=== PATIENT | male | born 1960 | race Caucasian/White ===

== ENCOUNTER 2018-03-04 23:09 | Emergency (ER) | payer BC, OTHER ==
--- NOTE | 2018-03-05 00:22 | EDPHY ---
H & P Stated Complaint: ETOH, nausea Time Seen by Provider: 03/05/18 00:06 HPI/ROS: HPI The patient presents with alcohol and marijuana intoxication, brought in by paramedics. Patient drink several alcoholic drinks today and then took a smoker of marijuana. He immediately felt dizzy and generally unwell, has if he could not control his body. His symptoms were constant. He is brought in by EMS to administered 1 L of normal saline via IV and now he is feeling much better. He is able to walk around the emergency department with no complaint. He feels mildly nauseated.. REVIEW OF SYSTEMS Constitutional: No fever, no chills. Eyes: No discharge. ENT: No sore throat. Cardiovascular: No chest pain, no palpitations. Respiratory: No cough, no shortness of breath. Gastrointestinal: No abdominal pain, no vomiting. Genitourinary: No hematuria. Musculoskeletal: No back pain. Skin: No rashes. Neurological: No headache. PMHx: Healthy Soc Hx: Alcohol use tonight PHYSICAL General Appearance: Alert, no distress Eyes: Pupils equal and round no pallor or injection ENT, Mouth: Mucous membranes moist Respiratory: There are no retractions, lungs are clear to auscultation Cardiovascular: Regular rate and rhythm Gastrointestinal: Abdomen is soft and non-tender, no masses, bowel sounds normal Neurological: A&O, moves all extremities Skin: Warm and dry, no rashes Musculoskeletal: Neck is supple non tender Extremities: symmetrical, full range of motion Psychiatric: Patient is oriented X 3, there is no agitation Source: Patient, RN/MD, EMS Exam Limitations: No limitations - Personal History Current Tetanus/Diphtheria Vaccine: Unsure - Medical/Surgical History Hx Asthma: No Hx Chronic Respiratory Disease: No Hx Diabetes: No Hx Cardiac Disease: No Hx Renal Disease: No Hx Cirrhosis: No Hx Alcoholism: No Hx HIV/AIDS: No Hx Splenectomy or Spleen Trauma: No Other PMH: denies - Social History Smoking Status: Never smoked Constitutional: Initial Vital Signs Temperature (C) 36.3 C 03/04/18 23:10 Heart Rate 81 03/04/18 23:10 Respiratory Rate 16 03/04/18 23:10 Blood Pressure 133/89 H 03/04/18 23:10 O2 Sat (%) 98 03/04/18 23:10 O2 Delivery Mode Room Air Allergies/Adverse Reactions: No Known Allergies Allergy (Unverified 03/04/18 23:12) Home Medications: Medication Instructions Recorded NK [No Known Home Meds] 03/04/18 Medical Decision Making Differential Diagnosis: 49-year-old healthy man presents with feeling generally unwell and nauseated after using alcohol marijuana tonight while at a concert. On exam, he has normal vital signs, is well-appearing, his sed unremarkable physical exam. I suspect marijuana and alcohol intoxication is cause of his symptoms. He has improved after receiving IV fluids. Plan for discharge to home. Differential diagnoses considered include alcohol intoxication, marijuana intoxication, dehydration. Departure - Departure Disposition: Home, Routine, Self-Care Clinical Impression: Alcoholic intoxication, Marijuana use, Nausea Condition: Good Instructions: Alcohol Intoxication (ED) Additional Instructions: Please make sure to drink plenty of fluids. You should return to the emergency department if your worse in any way. Referrals: NONE *PRIMARY CARE P,. [Primary Care Provider] - As per Instructions
[2018-03-05 01:14] VITALS: BP 137/80
== END 2018-03-05 00:27 | disposition home or self-care (01) ==
LOC: EDUNIT#
DX: F10.129 Alcohol abuse with intoxication, unspecified (principal); F12.90 Cannabis use, unspecified, uncomplicated; R11.0 Nausea